=== PATIENT | female | born 1945 | race Caucasian/White ===

== ENCOUNTER 2017-08-30 18:43 | Observation (INO) | payer MEDICARE, OTHER ==
[2017-08-30 19:32] LABS: ADD MAN DIFF? NO
[2017-08-30 19:33] LABS: BASOPHIL # 0.1 10^3/ul (0.0-0.1); BASOPHILS % 0.7 % (0.0-2.0); EOSINOPHILS # 0.4 10^3/ul (0.0-0.5); EOSINOPHILS % 5.2 % (0.0-7.0); HEMATOCRIT 38.1 % (37.0-47.0); HEMOGLOBIN 12.4 g/dl (12.0-16.0); LYMPHOCYTES % 36.5 % (15.0-51.0); MEAN CORPUSCULAR HEMOGLOBIN 26.6 pg (29.0-33.0); MEAN CORPUSCULAR HGB CONC 32.5 g/dl (32.0-37.0); MEAN CORPUSCULAR VOLUME 81.8 fl (82.0-101.0); MEAN PLATELET VOLUME 10.2 fl (7.4-10.4); MONOCYTE # 0.7 10^3/ul (0.3-0.9); MONOCYTES % 7.8 % (0.0-11.0); NEUTROPHIL # 4.1 10^3/ul (1.6-7.5); NEUTROPHILS % 49.4 % (39.0-77.0); PLATELET COUNT 318 10^3/UL (140-415); RED BLOOD COUNT 4.66 10^6/ul (4.20-5.40); RED CELL DISTRIBUTION WIDTH 13.3 % (11.5-14.5)
[2017-08-30 19:33] LABS: WHITE BLOOD COUNT 8.3 10^3/ul (4.8-10.8)
[2017-08-30 19:56] LABS: ALANINE AMINOTRANSFERASE 25 IU/L (13-69); ALBUMIN 4.1 g/dl (3.3-4.9); ALKALINE PHOSPHATASE 94 IU/L (42-121); ANION GAP 16 (8-16); ASPARTATE AMINO TRANSFERASE 19 IU/L (15-46); BILIRUBIN,INDIRECT 0.1 mg/dl (0-1.1); BILIRUBIN,TOTAL 0.1 mg/dl (0.2-1.3); BLOOD UREA NITROGEN 20 mg/dl (7-20); CALCIUM 9.3 mg/dl (8.4-10.2); CARBON DIOXIDE 26 mmol/L (21-31); CHLORIDE 105 mmol/L (97-110); CREATININE 0.71 mg/dl (0.44-1.00); GLUCOSE 181 mg/dl (70-220); SODIUM 143 mmol/L (135-144); TOTAL PROTEIN 7.5 g/dl (6.1-8.1)
[2017-08-30 20:07] LABS: B-TYPE NATRIURETIC PEPTIDE 139 PG/ML (0-125)
[2017-08-30 20:11] LABS: TROPONIN-I < 0.012 ng/ml (0.00-0.12)
[2017-08-30] MEDS ORDERED: morphine 2 MG INJ IV (22:30)
[2017-08-30] MEDS ORDERED: LORAZEPAM 0.5 MG TAB PO (22:30)
[2017-08-30] MEDS ORDERED: NITROGLYCERIN (SL) 0.4 MG TAB SL (22:30)
[2017-08-30] MEDS ORDERED: MECLIZINE 25 MG TAB PO (22:30)
[2017-08-30] MEDS ORDERED: NACL 0.9% 3 ML SYG IV (22:30)
[2017-08-30] MEDS ORDERED: ACETAMINOPHEN 325 MG TAB PO (22:30)
[2017-08-30] MEDS ORDERED: ONDANSETRON 4 MG INJ IV (22:30)
[2017-08-31 02:02] LABS: CREATINE KINASE 63 IU/L (23-200)
[2017-08-31 02:11] LABS: CK INDEX 1.1; TROPONIN-I < 0.012 ng/ml (0.00-0.12)
[2017-08-31] MEDS: PANTOPRAZOLE (EC) 40 MG TAB PO (06:25)
[2017-08-31] MEDS: LEVOTHYROXINE 125 MCG TAB PO (06:25)
[2017-08-31 06:48] LABS: ADD MAN DIFF? NO
[2017-08-31 06:53] LABS: BASOPHIL # 0.1 10^3/ul (0.0-0.1); BASOPHILS % 0.7 % (0.0-2.0); EOSINOPHILS # 0.5 10^3/ul (0.0-0.5); EOSINOPHILS % 5.1 % (0.0-7.0); HEMATOCRIT 36.4 % (37.0-47.0); HEMOGLOBIN 11.7 g/dl (12.0-16.0); LYMPHOCYTES # 3.3 10^3/ul (0.8-2.9); LYMPHOCYTES % 34.5 % (15.0-51.0); MEAN CORPUSCULAR HEMOGLOBIN 26.7 pg (29.0-33.0); MEAN CORPUSCULAR HGB CONC 32.1 g/dl (32.0-37.0); MEAN CORPUSCULAR VOLUME 82.9 fl (82.0-101.0); MEAN PLATELET VOLUME 10.5 fl (7.4-10.4); MONOCYTE # 0.7 10^3/ul (0.3-0.9); MONOCYTES % 7.7 % (0.0-11.0); NEUTROPHIL # 4.9 10^3/ul (1.6-7.5); NEUTROPHILS % 51.8 % (39.0-77.0); PLATELET COUNT 309 10^3/UL (140-415); RED BLOOD COUNT 4.39 10^6/ul (4.20-5.40); RED CELL DISTRIBUTION WIDTH 13.3 % (11.5-14.5)
[2017-08-31 06:53] LABS: WHITE BLOOD COUNT 9.5 10^3/ul (4.8-10.8)
[2017-08-31 07:12] LABS: HEMOGLOBIN A1C 7.6 % (0-5.9)
[2017-08-31 07:22] LABS: CREATINE KINASE 55 IU/L (23-200)
[2017-08-31 07:32] LABS: CK INDEX 1.4; CK-MB 0.75 ng/ml (0.0-2.4)
[2017-08-31 07:33] LABS: ALANINE AMINOTRANSFERASE 28 IU/L (13-69); ALBUMIN 3.6 g/dl (3.3-4.9); ALBUMIN/GLOBULIN RATIO 1.24; ALKALINE PHOSPHATASE 80 IU/L (42-121); ANION GAP 14 (8-16); ASPARTATE AMINO TRANSFERASE 18 IU/L (15-46); BILIRUBIN,INDIRECT 0.2 mg/dl (0-1.1); BILIRUBIN,TOTAL 0.2 mg/dl (0.2-1.3); BLOOD UREA NITROGEN 17 mg/dl (7-20); CALCIUM 9.4 mg/dl (8.4-10.2); CARBON DIOXIDE 29 mmol/L (21-31); CHLORIDE 106 mmol/L (97-110); CHOL/HDL RATIO 6.1 RATIO; CHOLESTEROL 221 mg/dl (100-200); CREATININE 0.72 mg/dl (0.44-1.00); GLUCOSE 155 mg/dl (70-220); HDL CHOLESTEROL 36 mg/dl (33-92); LDL CHOLESTEROL,CALCULATED 123 mg/dl; MAGNESIUM 1.7 mg/dl (1.7-2.5); POTASSIUM 4.9 mmol/L (3.5-5.1); SODIUM 144 mmol/L (135-144); TOTAL PROTEIN 6.5 g/dl (6.1-8.1); TRIGLYCERIDES 311 mg/dl (0-149)
[2017-08-31 07:38] LABS: TROPONIN-I < 0.012 ng/ml (0.00-0.12)
[2017-08-31] MEDS: VALSARTAN 160 MG TAB PO ×2 (07:55→21:15)
[2017-08-31] MEDS: HYDROCHLOROTHIAZIDE 25 MG TAB PO (07:56)
[2017-08-31] MEDS: INSULIN ASPART [NOVOLOG] 3 ML PEN SC ×2 (08:46→21:00)
[2017-08-31] MEDS: ASPIRIN (EC) 81 MG TAB PO (08:46)
[2017-08-31] MEDS: DONEPEZIL 5 MG TAB PO (08:46)
[2017-08-31] MEDS: GABAPENTIN 100 MG CAP PO (08:47)
[2017-08-31] MEDS: METOPROLOL (XL) 100 MG TAB PO (08:47)
[2017-08-31] MEDS: FENOFIBRATE 145 MG TAB PO (09:14)
[2017-08-31] MEDS: RIVASTIGMINE 4.6MG/24H PATCH TRANSDERM (09:14)
[2017-08-31] MEDS ORDERED: GLUCAGON 1 MG INJ IM (11:00)
[2017-08-31] MEDS ORDERED: GLUCOSE GEL 15 GRAM TUBE BUCCAL (11:00)
[2017-08-31] MEDS ORDERED: DEXTROSE 50% 50 ML SYRINGE IV ×2 (11:00)
[2017-08-31] MEDS ORDERED: GLUCOSE GEL 15 GRAM TUBE PO ×2 (11:00)
[2017-08-31] MEDS ORDERED: INSULIN DETEMIR [LEVEMIR] 3ML CART SC (20:00)
[2017-08-31] MEDS: ATORVASTATIN 80 MG TAB PO (21:15)
[2017-08-31 21:36] LABS: TROPONIN-I < 0.012 ng/ml (0.00-0.12)
[2017-09-01] MEDS: ACCU-CHEK XX (02:00)
[2017-09-01] MEDS: hydrALAzine 20 MG INJ IV (02:14)
[2017-09-01] MEDS: LEVOTHYROXINE 125 MCG TAB PO (05:46)
[2017-09-01] MEDS: PANTOPRAZOLE (EC) 40 MG TAB PO (05:46)
[2017-09-01] MEDS: INSULIN ASPART [NOVOLOG] 3 ML PEN SC ×4 (08:00→17:15)
[2017-09-01] MEDS: RIVASTIGMINE 4.6MG/24H PATCH TRANSDERM (09:00)
[2017-09-01] MEDS: DONEPEZIL 5 MG TAB PO (09:00)
[2017-09-01] MEDS: METOPROLOL (XL) 100 MG TAB PO (09:01)
[2017-09-01] MEDS: ASPIRIN (EC) 81 MG TAB PO (09:01)
[2017-09-01] MEDS: FENOFIBRATE 145 MG TAB PO (09:01)
[2017-09-01] MEDS: HYDROCHLOROTHIAZIDE 25 MG TAB PO (09:01)
[2017-09-01] MEDS: VALSARTAN 160 MG TAB PO (09:02)
[2017-09-01] MEDS: GABAPENTIN 100 MG CAP PO (09:02)
[2017-09-01] MEDS: REGADENOSON 0.4 MG/5 ML SYG (11:25)
[2017-09-01] MEDS ORDERED: INSULIN DETEMIR [LEVEMIR] 3ML CART SC (20:00)
== END 2017-09-01 17:42 | disposition home or self-care (01) ==
LOC: MS4 22:32 → E/R 18:43
DX: R07.9 Chest pain, unspecified (principal); I16.0 Hypertensive urgency; I10 Essential (primary) hypertension; E78.5 Hyperlipidemia, unspecified; Z91.14 Patient's other noncompliance with medication regimen; E11.9 Type 2 diabetes mellitus without complications; E03.9 Hypothyroidism, unspecified; R42 Dizziness and giddiness; D64.9 Anemia, unspecified; K58.9 Irritable bowel syndrome, unspecified; R93.1 Abnormal findings on diagnostic imaging of heart and coronary circulation; F03.90 Unspecified dementia, unspecified severity, without behavioral disturbance, psychotic disturbance, mood disturbance, and anxiety; Z79.82 Long term (current) use of aspirin; Z79.4 Long term (current) use of insulin
CPT/HCPCS: 36415; 71045; 78452; 80053; 80061; 82550; 82553; 82962; 83036; 83735; 83880; 84443; 84484; 85025; 93005; 93017; 93306; 93880; 99285-25; G0378